=== PATIENT | female | born 1985 | race African-American/Black ===

== ENCOUNTER 2016-09-27 03:07 | Emergency (ER) | payer MEDICAID, OTHER ==
[~2016-09-27] VITALS: Ht 162.6 cm; Wt 50.0 kg
[~2016-09-27 03:07] MED LIST: Z.0.NO CURRENT MEDS
[2016-09-27 03:10] VITALS: BP 131/80; PULSE 99; RESP 16; TEMP 98.2; O2SAT 98
[2016-09-27] MEDS ORDERED: ALBU6.7H INH (03:30)
[2016-09-27] MEDS ORDERED: PRED-503 PO (03:30)
--- NOTE | 2016-09-27 03:34 | PD ---
HPI Chief Complaint: Cold / Flu Symptoms Time Seen by Provider: 03:32 Travel History International Travel<30 days: No Contact w/Intl Traveler<30days: No Traveled to known affect area: No History of Present Illness HPI 31-year-old black female presents to the emergency department with complaints of cough. She states that she's been sick now for nearly 1 week. When it first started she stated that she did have a subjective fever but that did resolve after a few days. She has had runny nose, congestion and cough. She states that her cough is been persistent and irritating. She has some mild pleuritic chest wall pain with coughing and taking deep breath. She denies any shortness of breath or wheezing. No sputum production. No ear pain or sore throat. No abdominal pain, diarrhea, urinary symptoms or rashes. Symptoms are moderate. Worse when she is laying down at night to sleep. No palliative activity. PFSH Past Medical History Medical History: Denies Significant Hx Diminished Hearing: No Immunizations Current: No Tetanus Vaccination: < 5 Years ?: Not LMP: 08/31/16 : 1 Para: 1 Past Surgical History Surgical History: No Previous Surgery Social History Alcohol Use: No Tobacco Use: No Substance Use: No Allergies-Medications (Allergen,Severity, Reaction): Coded Allergies: No Known Allergies (Verified , 09/27/16) Reported Meds & Prescriptions Reported Meds & Active Scripts Active Proventil Hfa 6.7 GM Inh (Albuterol Sulfate) 90 Mcg/Act Aer 2 Puff INH Q4-6H PRN Deltasone (Prednisone) 20 Mg Tab 20 Mg PO BID Review of Systems Except as stated in HPI: all other systems reviewed are Neg Physical Exam Narrative GENERAL: Well-developed, well-nourished in no acute distress. Nontoxic appearing. HEAD: Normocephalic, atraumatic. EYES: Pupils equal round and reactive. Extraocular motions intact. No scleral icterus. No injection or drainage. ENT: TMs clear without erythema. The external auditory canals clear. Nose: clear . Posterior pharynx is pink and moist. No tonsillar edema or exudate. Uvula midline. Airway patent. NECK: Trachea midline.Supple, nontender, moves head freely. No central bony tenderness or spasm. CARDIOVASCULAR: Regular rate and rhythm without murmurs, gallops, or rubs. RESPIRATORY: Clear to auscultation. Breath sounds equal bilaterally. No wheezes , rales, or rhonchi. GASTROINTESTINAL: Abdomen soft, non-tender, nondistended. No hepato-splenomegaly , or palpable masses. No guarding. EXTREMITIES: No clubbing, cyanosis, or edema. No joint tenderness, effusion, or edema noted. BACK: Nontender without deformity or crepitance. No flank tenderness. Data Data Last Documented VS Vital Signs Date Time Temp Pulse Resp B/P Pulse Ox O2 Delivery O2 Flow Rate FiO2 09/27/16 03:10 98.2 99 16 131/80 98 Room Air MDM Medical Decision Making Medical Screen Exam Complete: Yes Emergency Medical Condition: Yes Medical Record Reviewed: Yes Differential Diagnosis MDM: High Differential diagnoses: Pneumonia, bronchitis, URI, asthma, RAD, legionnaire's disease, SARS, ARDS, influenza, bronchiolitis, RSV,PE,CHF Narrative Course This is URI with bronchospasm Patient's given 2 Tessalon 100 mg Perles and prednisone 40 mg by mouth Diagnosis Primary Impression: uri WITH BRONCHOSPASM Patient Instructions: General Instructions Additional Instructions: Rest. Increase fluids. Tylenol and Advil. Robitussin-DM. prednisone, and albuterol. Followup with your Dr. in one week. Return to the ER for any problems. Med/Other Pt SpecificInfo: Prescription(s) given Scripts Albuterol 6.7 GM Inh (Proventil Hfa 6.7 GM Inh)90 Mcg/Act Aer2 Puff INH Q4-6H PRN (SHORTNESS OF BREATH) #1 INHALER Prov:Lulu Olguin MD 09/27/16 Prednisone (Deltasone)20 Mg Tab20 Mg PO BID #10 TAB Prov:Lulu Olguin MD 09/27/16 Disposition: 01 DISCHARGE HOME Condition: Stable Ramo Vasquez Sep 27, 2016 03:34
[2016-09-27] MEDS ORDERED: predniSONE 20 MG TAB PO ONE (03:45)
[2016-09-27] MEDS ORDERED: BENZONATATE 100 MG CAP PO ONE (03:45)
== END 2016-09-27 03:53 | disposition home or self-care (01) ==
LOC: NEPB 03:07
DX: J06.9 Acute upper respiratory infection, unspecified (principal); J98.01 Acute bronchospasm; R07.89 Other chest pain
CPT/HCPCS: 99283; J7512